=== PATIENT | male | born 1955 | race Hispanic/Latino ===

== ENCOUNTER → 2019-11-17 | Outpatient (CLI) | payer OTHER ==
[~2019-11-17] MED LIST: APIX5TAB PO; CEPH-578 PO; METR-172 PO; PANT20TA12 PO
== END | disposition home or self-care (01) ==
LOC: SHCH 14:23
PROVIDERS: ATTEND Internal Medicine Cardiovascular Disease
DX: I48.20 Chronic atrial fibrillation, unspecified (principal)
CPT/HCPCS: 93306; 93356

== ENCOUNTER → 2023-01-23 | Outpatient (CLI) | payer MEDICARE ==
[~2023-01-23] MED LIST changes: -PANT20TA12 PO; +PANT20TA18 PO
== END | disposition home or self-care (01) ==
LOC: SHCH 12:56
PROVIDERS: ATTEND Internal Medicine Cardiovascular Disease
DX: I87.2 Venous insufficiency (chronic) (peripheral) (principal)
CPT/HCPCS: 93970